=== PATIENT | male | born 1960 | race Caucasian/White ===

== ENCOUNTER 2016-10-01 15:06 | Emergency (ER) | payer OTHER ==
[2016-10-01 16:11] LABS: ABSOLUTE NEUTROPHIL COUNT 7.4 K/mm3 (1.8-7.7); BASO # 0.1 K/mm3 (0.0-0.2); BASO % 0.8 % (0.2-1.0); EOS # 0.1 (0.0-0.5); EOS % 1.4 % (0.9-2.9); HEMATOCRIT 36.2 % (32.0-52.0); HEMOGLOBIN 13.4 gm/l (14.0-18.0); IMM NEUT # 0.2 K/mm3 (0-0.2); IMM NEUT% 1.5 % (0-1); LYMPH # 1.4 (1.0-4.8); LYMPH % 14.2 % (15-45); MEAN CELL VOLUME 98.6 fl (80.0-94.0); MEAN CORPUSCULAR HEMOGLOBIN 36.5 pg (27.0-31.0); MEAN PLATELET VOLUME 12.4 fl (7.4-10.4); MONO # 0.9 (0.0-0.8); MONO % 9.2 % (4-12); NEUT % 72.9 % (43-75); PLATELET COUNT 158 K/mm3 (130-400); RED CELL DISTRIBUTION WIDTH 19.8 % (11.5-14.5)
[2016-10-01 16:26] LABS: ALB/GLOB RATIO 0.8 (>1.0); ALBUMIN 2.8 gm/dL (3.5-5.7); ALT/SGPT 107 U/L (7-52); BLOOD UREA NITROGEN 10 mg/dL (7-25); BUN/CREATININE RATIO 13 (6-20); CALCIUM 8.6 mg/dL (8.6-10.3); GLOMERULAR FILTRATION RATE 100 mL/min (60-93)
[2016-10-01 16:42] LABS: LIPASE < 3 U/L (11-82)
[2016-10-01] MEDS ORDERED: ONDANSETRON 4 MG/2ML 2 ML VIAL ONE (18:02)
[2016-10-01] MEDS ORDERED: SODIUM CHLORIDE 0.9% 1,000 ML ONE (18:02)
--- NOTE | 2016-10-01 18:09 | US ---
ABDOMINAL-LIMITED, ABDOMINAL-LIMITED: 10/01/2016 4:29 PM CLINICAL HISTORY: Jaundice, right upper quadrant pain for one month. History of liver disease.. STUDY: Limited right upper quadrant ultrasound COMPARISON: 05/30/2016 abdominal ultrasound FINDINGS: Gallbladder: Wall thickness: Thickened between 5 and 7 mm Cholelithiasis: Debris is present, mobile filling the gallbladder. This moves with breathing. Pericholecystic Fluid: Small amount of fluid is noted along the inferior aspect of the liver, and could represent some pericholecystic fluid. Sonographic Rogers's Sign: Negative Bile ducts: Common bile duct now measures upwards 13 mm in diameter, increased from 7 mm on prior study. Limited visualized Liver and RUQ structures: The liver maintains lobulated heterogeneous appearance with hepatopedal flow. Mildly hepatic duct dilation is present, not seen on prior exam. IMPRESSION: Debris is identified within the gallbladder, with significant increase in the diameter of the common bile duct and presence of intrapelvic duct dilation. Findings are worrisome for choledocholithiasis or other biliary pathology. No common duct stone is identified on these images. Findings were called to Dr. Storey at approximately 1803 hours on 10/01/2016.
[2016-10-01 18:28] LABS: INR 1.26; PROTHROMBIN TIME 13.4 SECONDS (9.3-11.4)
[2016-10-01 19:23] LABS: SPECIFIC GRAVITY 1.015 (1.001-1.030); URINE BILIRUBIN 3+ (NEGATIVE); URINE BLOOD 1+ (NEGATIVE); URINE GLUCOSE (UA) NEGATIVE (NEGATIVE); URINE LEUKOCYTE ESTERASE NEGATIVE (NEGATIVE); URINE NITRITE POSITIVE (NEGATIVE); URINE PROTEIN 1+ (NEGATIVE)
[2016-10-01 19:24] LABS: URINE APPEARANCE CLOUDY; URINE COLOR BROWN; URINE UROBILINOGEN 8 mg/dL (0-1 mg/dl)
[2016-10-01 19:33] LABS: URINE AMORPHOUS SEDIMENT MODERATE; URINE RBC 0-2 /hpf
[2016-10-01 19:34] LABS: URINE CASTS RARE /lpf
[2016-10-01 19:35] LABS: URINE BACTERIA 1+
== END 2016-10-01 21:20 | disposition short-term general hospital (02) ==
LOC: ED 15:06
DX: K91.86 Retained cholelithiasis following cholecystectomy (principal); K74.60 Unspecified cirrhosis of liver; R17 Unspecified jaundice; J45.909 Unspecified asthma, uncomplicated; J44.9 Chronic obstructive pulmonary disease, unspecified; K21.9 Gastro-esophageal reflux disease without esophagitis; Z86.73 Personal history of transient ischemic attack (TIA), and cerebral infarction without residual deficits; E11.9 Type 2 diabetes mellitus without complications; I10 Essential (primary) hypertension
CPT/HCPCS: 83690; 82140; 85025; 87086; 80053; 85610; 81001; 76705 ×2; 99284; 96374; 96361; 99285; J2405; J7030

== ENCOUNTER 2016-10-13 17:43 | Emergency (ER) | payer OTHER ==
[2016-10-13 18:56] LABS: INR 1.32; PROTHROMBIN TIME 14.1 SECONDS (9.3-11.4)
[2016-10-13 19:01] LABS: ALB/GLOB RATIO 0.6 (>1.0); ALBUMIN 2.1 gm/dL (3.5-5.7); ALT/SGPT 114 U/L (7-52); BLOOD UREA NITROGEN 26 mg/dL (7-25); BUN/CREATININE RATIO 19 (6-20); CALCIUM 7.9 mg/dL (8.6-10.3); GLOMERULAR FILTRATION RATE 52 mL/min (60-93)
--- NOTE | 2016-10-13 19:10 | RAD ---
Name: GEMMA VALERO Exam: Single view chest Comparison: 05/19/2015 Clinical history: Weakness Findings: Single view the chest submitted heart is nonenlarged. Mediastinum and hilar structures normal. There is a small amount of streaky density left lung base which may represent atelectasis or possibly very early or mild infiltrate. There is no pleural effusion or pneumothorax. Regional skeleton is within normal limits. Impression: Minimal left costophrenic sulcus atelectasis or infiltrate.
[2016-10-13 19:13] LABS: C-REACTIVE PROTEIN 3.8 mg/dl (<1.0); LIPASE < 3 U/L (11-82)
[2016-10-13] MEDS ORDERED: CEFTRIAXONE 2 GRAM DUPLEX 50 ML IV ONE (19:48)
[2016-10-13 20:09] LABS: BASO # 0.1 K/mm3 (0.0-0.2); BASO % 0.2 % (0.2-1.0); EOS % 0.2 % (0.9-2.9); LYMPH % 1.7 % (15-45)
[2016-10-13 20:12] LABS: ABSOLUTE NEUTROPHIL COUNT 19.3 K/mm3 (1.8-7.7); EOS # 0.1 (0.0-0.5); IMM NEUT # 0.2 K/mm3 (0-0.2); LYMPH # 0.3 (1.0-4.8); MEAN CELL VOLUME 95.8 fl (80.0-94.0); MEAN PLATELET VOLUME 12.1 fl (7.4-10.4); MONO # 0.5 (0.0-0.8); MONO % 2.5 % (4-12); NEUT % 94.4 % (43-75); PLATELET COUNT 167 K/mm3 (130-400); RED CELL DISTRIBUTION WIDTH 20.8 % (11.5-14.5)
[2016-10-13] MEDS ORDERED: AZITHROMYCIN 500 MG VIAL ONE (20:18)
[2016-10-13] MEDS ORDERED: SODIUM CHLORIDE 0.9% 250 ML IV ONE (20:18)
[2016-10-13 21:00] LABS: MEAN CORPUSCULAR HEMOGLOBIN 35.5 pg (27.0-31.0); MEAN CORPUSCULAR HGB CONC 36.7 g/dl (33.0-37.0)
[2016-10-13 21:02] LABS: HEMOGLOBIN 13.2 gm/l (14.0-18.0)
[2016-10-13 21:32] LABS: BAND 15 % (0-10); BASOPHIL 0 % (0-1); EOSINOPHIL 0 % (1-3); LYMPHOCYTE 2 % (15-45); MONOCYTE 2 % (4-12); NEUTROPHILS 81 % (43-75); TOTAL CELLS COUNTED 100
[2016-10-13 21:33] LABS: ANISOCYTOSIS 1+; HYPOCHROMIA 1+; PLATELET ESTIMATE NORMAL (NORMAL)
== END 2016-10-13 21:24 | disposition home or self-care (01) ==
LOC: ED 17:43
DX: J18.9 Pneumonia, unspecified organism (principal); C25.9 Malignant neoplasm of pancreas, unspecified; J45.909 Unspecified asthma, uncomplicated; J44.9 Chronic obstructive pulmonary disease, unspecified; K21.9 Gastro-esophageal reflux disease without esophagitis; Z86.73 Personal history of transient ischemic attack (TIA), and cerebral infarction without residual deficits; E11.9 Type 2 diabetes mellitus without complications; I10 Essential (primary) hypertension; F41.9 Anxiety disorder, unspecified; F32.9 Major depressive disorder, single episode, unspecified; F17.210 Nicotine dependence, cigarettes, uncomplicated; Z79.899 Other long term (current) drug therapy
CPT/HCPCS: 83605; 83690; 82140; 86141; 85025; 87040; 80053; 85610; 71010; 96375; 99284; 96365; 99285; J0456; J7050; J0696

== ENCOUNTER 2017-01-05 12:25 | Emergency (ER) | payer OTHER ==
[2017-01-05] MEDS ORDERED: IOPAMIDOL 300 (61%) 100 ML VIAL IV ONE (12:26)
[2017-01-05 13:12] LABS: ABSOLUTE NEUTROPHIL COUNT 5.2 K/mm3 (1.8-7.7); BASO # 0.1 K/mm3 (0.0-0.2); BASO % 0.9 % (0.2-1.0); EOS % 0.5 % (0.9-2.9); HEMATOCRIT 43.2 % (32.0-52.0); HEMOGLOBIN 15.3 gm/l (14.0-18.0); IMM NEUT% 0.3 % (0-1); LYMPH # 1.8 (1.0-4.8); LYMPH % 22.8 % (15-45); MEAN CELL VOLUME 98.6 fl (80.0-94.0); MEAN CORPUSCULAR HEMOGLOBIN 34.9 pg (27.0-31.0); MEAN CORPUSCULAR HGB CONC 35.4 g/dl (33.0-37.0); MONO # 0.7 (0.0-0.8); MONO % 8.7 % (4-12); NEUT % 66.8 % (43-75); PLATELET COUNT 129 K/mm3 (130-400); RED CELL DISTRIBUTION WIDTH 11.6 % (11.5-14.5)
[2017-01-05 13:44] LABS: CALCIUM 10.1 mg/dL (8.6-10.3); MAGNESIUM 1.6 mg/dL (1.9-2.7)
[2017-01-05] MEDS ORDERED: LACTATED RINGERS 1,000 ML ONE (13:44)
[2017-01-05] MEDS ORDERED: ONDANSETRON 4 MG/2ML 2 ML VIAL ONE ×2 (13:44→14:29)
[2017-01-05] MEDS ORDERED: HYDROMORPHONE HCL 0.5 MG/0.5 ML SYRINGE ONE ×2 (13:44→15:31)
[2017-01-05] MEDS ORDERED: MAGNESIUM SULFATE 2 G/50 ML 50 ML IV ONE (14:00)
[2017-01-05 14:12] LABS: URINE BILIRUBIN NEGATIVE (NEGATIVE); URINE BLOOD TRACE (NEGATIVE); URINE GLUCOSE (UA) NEGATIVE (NEGATIVE); URINE LEUKOCYTE ESTERASE NEGATIVE (NEGATIVE); URINE NITRITE NEGATIVE (NEGATIVE); URINE PROTEIN 1+ (NEGATIVE); URINE UROBILINOGEN 1 mg/dL (0-1 mg/dl)
[2017-01-05 14:20] LABS: URINE APPEARANCE CLEAR; URINE COLOR AMBER
[2017-01-05 14:23] LABS: URINE BACTERIA 1+
--- NOTE | 2017-01-05 14:41 | CT ---
CT ABDOMEN AND PELVIS WITH CONTRAST HISTORY: Abdominal pain, history of pancreatic cancer. TECHNIQUE: Following intravenous administration of 100 mL of Isovue-300, contiguous axial images were acquired from the lung bases to the ischial tuberosities. Oral contrast was not administered. COMPARISON: 03/17/2014. FINDINGS: LUNG BASES: No gross airspace consolidation or pleural effusion. LIVER: Mildly nodular contour with recanalization of the umbilical vein, seen on prior imaging pneumobilia is identified. Subtle low attenuation foci of the liver which measure up to 1.9 cm in size, metastases are possible. SPLEEN: No focal lesion. 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 PANCREAS: Ill-defined mass lesion at the pancreatic head which measures approximately 4.7 x 4.3 x 4.1 cm with a 1.5 cyst along its lateral aspect. Evidence of biliary stenting. Minor associated stranding. ADRENAL GLANDS: No mass effect. KIDNEYS: Interval development of obstructive right renal calculus, 5 mm in size on the right. 2 separate of nonobstructive calculi on the left measure up to 4 mm in size. GALLBLADDER: High attenuation content may reflect sludge or vicarious excretion of contrast. BOWEL: Moderate fecal loading. Limited assessment of the distal colon due to decompression. No abnormal small bowel dilatation. APPENDIX: Normal gas-filled appendix. PELVIC ORGANS: No gross mass effect. FREE FLUID: No gross free fluid identified. ABDOMINOPELVIC LYMPH NODES: Multiple abdominal and peripancreatic lymph nodes identified measuring up to 3.3 cm in length. ABDOMINAL AORTA: Normal caliber. OSSEOUS STRUCTURES: No grossly destructive lesions. IMPRESSION: 1. 4.7 cm pancreatic head mass lesion keeping with history of neoplasm status post stent placement. Multiple low-attenuation lesions of the liver raising suspicion for metastases. Primary hepatic lesions are another possibility. 2. Nonspecific peripancreatic stranding and adenopathy. Superimposed features of pancreatitis are possible. 3. Obstructive 5 mm proximal right ureteral calculus. 4. Nonobstructive appearance of bowel. 5. Features of portal hypertension and cirrhosis. Findings discussed with Dr. Casillas of the Emergency Medicine clinical service on 01/05/2017 at 1435 hours P
[2017-01-05] MEDS ORDERED: SODIUM CHLORIDE 0.9% 50 ML IV ONE (15:30)
[2017-01-05] MEDS ORDERED: PROMETHAZINE HCL 25 MG/ML VIAL ONE (15:31)
== END 2017-01-05 16:57 | disposition short-term general hospital (02) ==
LOC: ED 12:25
DX: C25.9 Malignant neoplasm of pancreas, unspecified (principal); E83.42 Hypomagnesemia; R11.2 Nausea with vomiting, unspecified; N20.1 Calculus of ureter; K21.9 Gastro-esophageal reflux disease without esophagitis; I10 Essential (primary) hypertension; J44.9 Chronic obstructive pulmonary disease, unspecified; F17.210 Nicotine dependence, cigarettes, uncomplicated; E11.9 Type 2 diabetes mellitus without complications; Z79.4 Long term (current) use of insulin; Z79.84 Long term (current) use of oral hypoglycemic drugs; Z86.73 Personal history of transient ischemic attack (TIA), and cerebral infarction without residual deficits; Z86.718 Personal history of other venous thrombosis and embolism
CPT/HCPCS: 83690; 85025; 87086; 80053; 83735; 84484; 81001; 74177; 96375 ×2; 96376; 99285 ×2; 96361; 96365; 96366; 96368; J2550; J2405 ×2; J7120; J7050; J3475; Q9967; J1170 ×2